=== PATIENT | male | born 2005 | race Caucasian/White ===

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

== ENCOUNTER 2023-11-20 18:54 | Emergency (ER) | payer OTHER, SELFPAY ==
[2023-11-20 19:05] VITALS: BP 122/72; PULSE 78; RESP 20; TEMP 36.7; O2SAT 100
--- NOTE | 2023-11-20 19:12 | ED.SKABFB ---
HPI - Skin/Abscess/Foreign Bdy General Chief complaint: Skin/Abscess/Foreign Body Stated complaint: poss staff infection Time Seen by Provider: 11/20/23 19:13 Source: patient, RN notes reviewed and old records reviewed Mode of arrival: ambulatory Limitations: no limitations History of Present Illness HPI narrative: 18 year old male who presents to [facility] care with complaints of 2 week duration of red lesions to lower abdomen and upper pubis and groin area in various stages of healing. Patient reports that areas are itchy and he has been scratching with some scabbed, some red and some with pustules noted.Patient reports that he shaved his lower abdomen and upper pubis area and then developed the rash. Patient denies any fevers or any chills. MD complaint: rash Onset (ago): week(s) (2 weeks) Severity scale (1-10): 6 Quality: burning and pruritic Treatments prior to arrival: none Related Data Allergies Allergy/AdvReac Type Severity Reaction Status Date / Time No Known Allergies Allergy Verified 11/20/23 19:12 Review of Systems Review of Systems: CONSTITUTIONAL: Denies fever, chills, or sweats. CARDIOVASCULAR: Denies chest pain, palpitations, or edema. RESPIRATORY: Denies cough or dyspnea. SKIN: Reports lesions to lower abdomen upper pubis and groin area in various stages of healing for the past 2 weeks after shaving areas MUSCULOSKELETAL: Denies joint pain or myalgia. NEUROLOGIC: Denies headache, numbness, or weakness. All systems reviewed & are unremarkable except as noted in HPI and below PMFSH Past Medical History Medical History (Updated 11/20/23 @ 19:45 by Elena Vazquez NP) ADHD (attention deficit hyperactivity disorder) Bronchitis History of staph infection Strep throat Social History Social History (Updated 11/20/23 @ 19:42 by Elena Vazquez NP) Smoking status: Current every day smoker Tobacco type: e-cigarettes/vaping Alcohol intake: current Alcohol use details: rare Substance use: current Substance use type: marijuana Living arrangements: with family Gender identity (if verbalized by the patient): Male Comments At time of signature, agree with nursing past medical, surgical, social and family history. There is no relevant family history pertinent to the presenting complaint Exam Narrative: GENERAL: Well-appearing, well-nourished, and in no acute distress. HEAD: Normocephalic, atraumatic. EYES: PERRLA, conjunctivae clear, and EOMI. ENT: Mucous membranes moist. Oropharynx without edema, erythema or lesions. NECK: Supple. No lymphadenopathy CHEST: Clear to auscultation. No respiratory distress.SAO2 100% on room air HEART: Regular rate and rhythm. SKIN: Warm, dry.? Patches of raised erythemic lesions with some pustules on lower abdomen and upper pubis and groin area NEURO:? Alert and oriented x3. PSYCH: Normal mood and affect Course Course Emergency Course: Patient is aware of diagnosis, understands and agrees to treatment plan.? Anticipatory guidance given.? Patient agrees to follow-up as directed and is aware of reasons to seek care at the emergency department. Portions of this record may have been created with voice recognition software Level of Care: Express Care Visit Vital Signs Vital signs: Reviewed MDM - Skin/Abscess/Foreign Bdy MDM Narrative Medical decision making narrative: Does not appear at this time to be erythema multiforme, bullous, SJS, TEN; no evidence at this time to suggest RMSF, endocarditis or Lyme disease; patient looks well, nontoxic and is tolerating oral intake; no neurologic signs or symptoms; no headache, photophobia or neck pain; afebrile; appropriate for initial outpatient treatment; discussed the importance of follow-up, patient agrees; question, viral exanthema, contact dermatitis, allergic dermatitis, eczema, urticaria. No soft palate or uvula edema, no tongue, lip edema or other mucosal involvement, no respiratory
== END 2023-11-20 19:28 | disposition home or self-care (01) ==
PROVIDERS: Emergency Provider Registered Nurse
DX: L73.9 Follicular disorder, unspecified (principal); F17.290 Nicotine dependence, other tobacco product, uncomplicated
CPT/HCPCS: 99213; G0463

== ENCOUNTER 2024-07-01 13:52 | Emergency (ER) | payer OTHER, SELFPAY ==
[2024-07-01 13:55] VITALS: BP 129/74; PULSE 86; RESP 18; TEMP 36.4; O2SAT 100
--- NOTE | 2024-07-01 14:04 | ED.EXTPRO ---
HPI - Extremity Problem General Chief complaint: Extremity Problem,Nontraumatic Stated complaint: Right shoulder pain Time Seen by Provider: 07/01/24 14:04 Source: patient Mode of arrival: ambulatory Limitations: no limitations History of Present Illness HPI Narrative: 19-year-old male presented for complaint of right shoulder pain for 4 days. He states he thinks he slept on it wrong. pain is to the anterior shoulder, is described as sharp. Denies known injury. Endorses decreased range of motion due to pain when trying to reach arm behind the back, otherwise has full range of motion without pain. He states he does lift at work, which caused more pain yesterday. Has taken ibuprofen. Denies radiating pain, numbness, tingling, weakness. Related Data Allergies Allergy/AdvReac Type Severity Reaction Status Date / Time No Known Allergies Allergy Verified 07/01/24 13:59 Review of Systems Review of Systems: CONSTITUTIONAL: Denies body aches, fever, chills EYES: Denies visual changes ENT: Denies rhinorrhea, congestion CARDIOVASCULAR: Denies chest pain, palpitations, or edema. RESPIRATORY: Denies cough or dyspnea. GASTROINTESTINAL: Denies abdominal pain, nausea, vomiting, or diarrhea. SKIN: Denies rash, itching, or wounds. MUSCULOSKELETAL: reports right shoulder pain NEUROLOGIC: Denies headache, numbness, tingling, or weakness. PSYCH: Denies depression or anxiety. All systems reviewed & are unremarkable except as noted in HPI and below PMFSH Past Medical History Medical History History of staph infection Bronchitis Strep throat ADHD (attention deficit hyperactivity disorder) Social History Social History Smoking status: Current every day smoker Tobacco type: e-cigarettes/vaping Alcohol intake: current Alcohol use details: rare Substance use: current Substance use type: marijuana Living arrangements: with family Gender identity (if verbalized by the patient): Male Comments At time of signature, I have reviewed and agree with nursing past medical, surgical, social and family history unless otherwise noted. Please see nursing chart for further information. There is no relevant family history pertinent to the presenting complaint Exam Narrative: GENERAL: Well-appearing in no acute distress. HEAD: Normocephalic, atraumatic. EYES: PERRLA, conjunctivae clear NECK: Supple. CHEST: Speaks in full sentences. No respiratory distress. HEART: Regular rate and rhythm. Normal and equal peripheral pulses. EXTREMITIES: right upper extremity has normal strength and sensation, normal range of motion with anterior and lateral movement of the shoulder, but endorses pain with posterior movement. no edema or ecchymosis, No point tenderness. No open wounds, skin tenting, or obvious deformity; alignment normal, pulse palpable and equal bilaterally, skin warm, dry, pink. Capillary refill less than 3 seconds. SKIN: Warm, dry, no rash. NEURO: Alert and oriented x3. PSYCH: Normal mood and affect Course Course Emergency Course: Patient is aware of diagnosis, understands and agrees to treatment plan. Anticipatory guidance given. Patient agrees to follow-up as directed and is aware of reasons to seek care at the emergency department. Portions of this record may have been created with voice recognition software Level of Care: Express Care Visit Vital Signs Vital signs: Vital Signs Temperature 97.6 F 07/01/24 13:55 Pulse Rate 86 07/01/24 13:55 Respiratory Rate 18 07/01/24 13:55 Blood Pressure 129/74 07/01/24 13:55 Pulse Oximetry 100 07/01/24 13:55 Oxygen Delivery Room Air 07/01/24 13:55 Temperature 97.6 F 07/01/24 13:55 Pulse Rate 86 07/01/24 13:55 Respiratory Rate 18 07/01/24 13:55 Blood Pressure 129/74 07/01/24 13:55 Pulse Oximetry 100 07/01/24 13:55 Oxygen Delivery Room Air 07/01/24 13:55 Reviewed MDM - Extremity (Nontraumatic) MDM Narrative Medical decision making narrative: Discussed physical exam findings , reviewed prescriptions. Advised supportive measures and signs/symptoms to go to the ER. Pt is appropriate for outpt treatment and f/u. Differential Diagnosis Differential diagnosis: Likely other (Shoulder dislocation, clavicle fracture, humerus fracture, scapular fracture, acromioclavicular joint injury, rotator cuff tear, bicep tendon rupture, tricep tendon rupture) Discharge Plan Discharge Clinical Impression: Acute pain of right shoulder Patient Disposition: Home, Self-Care Condition: Stable Instructions: Shoulder Pain (ED) Additional Instructions: Rest. Avoid pushing, pulling, lifting or anything that worsens the symptoms No lifting over 10 lbs until symptoms are fully resolved. Tylenol 1000mg every 8 hours as needed You can alternate with ibuprofen 800mg Alternate ice/heat to the site. Lidocaine or salon pas pain patch or use pain cream like icy/hot or biofreeze. Follow up with your primary care provider as needed in 1 week Go to the ER for worsening symptoms or concerns Patient Language: Syriac Prescriptions: New cyclobenzaprine 10 mg tablet 10 mg PO TID PRN (Reason: muscle spasm) Qty: 12 0RF prednisone 50 mg tablet 50 mg PO DAILY Qty: 5 0RF Follow-up/Referrals: PHYSICIAN,LIME [employer]IL[employer] WORKER HELPER [Primary Care Provider] - Stand Alone Forms: Work/School Release IP Time of Disposition: 14:13
--- OUTSIDE RECORDS SUMMARY | 2024-07-01 14:04 | XMS_ITS | Clinical Summary ---
Author Organization [facility] Address [address] [place] [address] Phone Care Team Providers Care Claim Trainee Name Role Phone Unavailable Primary Care Provider Unavailabl e Immunizations Immunization Administration Dates Next Due DTAP VACCINE 04/14/2004, 4,2003,2002 HEP B/HIB Combined Vaccine 2003,2003 Hepatitis B Vaccine, Pediatric/adolescent 2003 Hib Vaccine,unspecified Formulation 01/13/2004,1 07/09/2002 Inactivated Polio Vaccine 2003,2003, 2003 MMR Vaccine 01/13/2004 Pneumococcal Vaccine Peds - 7 Valent ,2003,2003,2002 Varicella Vaccine Live 01/13/2004 Social History Tobacco Use Types Packs/Day Years Used Date Smoking Tobacco: Never Assessed Sex and Gender Information Value Date Recorded Sex Assigned at Not on file Legal Sex Male 9:07 PM CDT Gender Identity Not on file Sexual Orientation Not on file Plan of Treatment Not on file
== END 2024-07-01 14:28 | disposition home or self-care (01) ==
PROVIDERS: Emergency Provider Nurse Practitioner Family
DX: M25.511 Pain in right shoulder (principal); F17.290 Nicotine dependence, other tobacco product, uncomplicated
CPT/HCPCS: 99213; G0463

== ENCOUNTER 2025-01-09 14:16 | Emergency (ER) | payer OTHER, SELFPAY ==
--- OUTSIDE RECORDS SUMMARY | 2025-01-09 14:18 | XMS_ITS | Clinical Summary ---
Author Organization [facility] Address [address] [place] [address] Phone Care Team Providers Care Manager Welding Name Role Phone Unavailable Primary Care Provider [...]
[2025-01-09 14:21] VITALS: BP 119/72; PULSE 70; RESP 16; TEMP 36.4; O2SAT 100
--- NOTE | 2025-01-09 14:28 | ED_ITS ---
HPI - Extremity Injury (Lower) General Chief Complaint: Extremity Injury, Lower Stated Complaint: Left Big Toe/ Skin Sore Time Seen by Provider: 01/09/25 14:28 Source: patient Mode of arrival: ambulatory Limitations: no limitations History of Present Illness HPI Narrative: 20 yo M presents with pain to L great toe. Cut his own ingrown toenail and had pain yesterday. Was not able to go to work. Needs work excuse. Soaked in epsom salt and applied hydrogen peroxide and feels better today. All systems reviewed and negative except as noted above. Related Data Allergies Allergy/AdvReac Type Severity Reaction Status Date / Time No Known Allergies Allergy Verified 01/09/25 14:29 [facility] Past Medical History Medical History History of staph infection Bronchitis Strep throat ADHD (attention deficit hyperactivity disorder) Social History Social History Smoking status: Current every day smoker Tobacco type: e-cigarettes/vaping Alcohol intake: current Alcohol use details: rare Substance use: current Substance use type: marijuana Living arrangements: with family Gender identity (if verbalized by the patient): Male Comments At time of signature, agree with nursing past medical, surgical, social and family history. There is no relevant family history pertinent to the presenting complaint. Exam Narrative: GENERAL: This is a well-nourished, well-developed patient, in no apparent distress. HEAD: normocephalic, atraumatic. EYES: PERRL. Sclera clear/white. Vision is grossly intact. EARS: External ears normal NOSE: External nose normal NECK: Neck supple, non-tender without lymphadenopathy, masses or thyromegaly. CARDIOVASCULAR: Regular rate and rhythm without murmurs, gallops, or rubs. RESPIRATORY: Clear to auscultation. Breath sounds equal bilaterally. No wheezes, rales, or rhonchi. SKIN: warm, Dry, intact with no suspicious lesions or rash, good texture and turgor. no erythema or swelling. tender on palpation to medial aspect L great toenail. NEURO: awake, alert, and oriented to person, place and time. There were no obvious focal neurologic abnormalities. EXTREMITIES: No joint tenderness, effusion, or edema noted. Course Course Level of Care: Express Care Visit Vital Signs Vital signs: Vital Signs Temperature 36.4 C 01/09/25 14:21 Pulse Rate 70 01/09/25 14:21 Respiratory Rate 16 01/09/25 14:21 Blood Pressure 119/72 01/09/25 14:21 Pulse Oximetry 100 01/09/25 14:21 Oxygen Delivery Room Air 01/09/25 14:21 Temperature 36.4 C 01/09/25 14:21 Pulse Rate 70 01/09/25 14:21 Respiratory Rate 16 01/09/25 14:21 Blood Pressure 119/72 01/09/25 14:21 Pulse Oximetry 100 01/09/25 14:21 Oxygen Delivery Room Air 01/09/25 14:21 reviewed MDM - Extremity Injury (Lower) MDM Narrative Medical decision making narrative: pt given mupirocin ointment to start if he has signs of infection. pt well appearing. given work excuse for yesterday. Discharge Plan Discharge Clinical Impression: Pain around toenail, left foot Patient Disposition: Home Condition: Stable Instructions: Antibiotic Form, Ingrown Nail (ED) Additional Instructions: If you have worsening of symptoms such as redness, swelling,drainage start prescribed antibiotic ointmment. Patient Language: Italian Prescriptions: New mupirocin [Centany] 2 % ointment 1 applic topical BID 7 Days Qty: 15 0RF Follow-up/Referrals: PHYSICIAN,OPERATIONS INTELLIGENCE SUPERINTENDENT [Primary Care Provider] - Stand Alone Forms: Work/School Release IP Time of Disposition: 14:34
== END 2025-01-09 14:47 | disposition home or self-care (01) ==
PROVIDERS: Emergency Provider Nurse Practitioner Family
DX: M79.675 Pain in left toe(s) (principal); F17.290 Nicotine dependence, other tobacco product, uncomplicated; F12.90 Cannabis use, unspecified, uncomplicated
CPT/HCPCS: 99213; G0463

== ENCOUNTER 2025-02-10 10:43 | Emergency (ER) | payer OTHER, SELFPAY ==
--- NOTE | ~2025-02-10 | XR_ITS ---
X-rays right second finger Indication: Injury Comparison: None Technique: 3 views right second finger Findings/Impression: 1. No fracture or other acute bony abnormality noted. 2. No radiopaque foreign body. Reviewed, dictated and finalized at location R.
[2025-02-10 10:45] VITALS: BP 129/91; PULSE 81; RESP 20; TEMP 36.7; O2SAT 100
--- NOTE | 2025-02-10 11:06 | ED_ITS ---
HPI - Extremity Injury (Upper) General Chief Complaint: Extremity Injury, Upper Stated Complaint: right hand smashed finger Time Seen by Provider: 02/10/25 10:58 Source: patient, RN notes reviewed and old records reviewed Mode of arrival: ambulatory Limitations: no limitations History of Present Illness HPI narrative: 20 year old male presents to [facility] care with complaints of smashing his right distal index finger when hanging a shelf last evening and shelf falling onto his right distal index finger, No open wounds noted to finger some redness with swelling and some blood noted under upper nail. Patient states that he tried to put a hole in his nail but was unable to get any blood out. Patient reports that finger tip is throbbing and has taken some Aspirin and has used ice to his right index finger, full mobility of finger noted. MD complaint: injury to: right (distal index finger) Onset (ago): day(s) (yesterday evening at 10pm) Other injuries: none Severity scale (1-10): 5 Treatments prior to arrival: cold therapy and other (aspirin, tried to put hole in nailbed unsuccessful) Related Data Allergies Allergy/AdvReac Type Severity Reaction Status Date / Time No Known Allergies Allergy Verified 01/09/25 14:29 Review of Systems Review of Systems: CONSTITUTIONAL: Denies fever, chills, or sweats. EYES: Denies visual changes, redness, or discharge. ENT: Denies rhinorrhea, congestion, sore throat, or otalgia. CARDIOVASCULAR: Denies chest pain, palpitations, or edema. RESPIRATORY: Denies cough or dyspnea. GASTROINTESTINAL: Denies abdominal pain, nausea, vomiting, or diarrhea. GENITOURINARY: Denies dysuria or hematuria. SKIN: Denies rash or itching. MUSCULOSKELETAL: Denies back pain, joint pain, or myalgia.reports pain to the distal right index finger with small amount of blood under upper nail bed with some redness and swelling distal index finger NEUROLOGIC: Denies headache, numbness, or weakness. PSYCHIATRIC: Denies anxiety or depression. All systems reviewed & are unremarkable except as noted in HPI and below PMFSH Past Medical History Medical History History of staph infection Bronchitis Strep throat ADHD (attention deficit hyperactivity disorder) Social History Social History Smoking status: Current every day smoker Tobacco type: e-cigarettes/vaping Alcohol intake: current Alcohol use details: rare Substance use: current Substance use type: marijuana Living arrangements: with family Gender identity (if verbalized by the patient): Male Comments At time of signature, agree with nursing past medical, surgical, social and family history. There is no relevant family history pertinent to the presenting complaint Exam Narrative: GENERAL: Well-appearing, well-nourished, and in no acute distress. HEAD: Normocephalic, atraumatic. EYES: PERRLA and EOMI. ENT: Nares clear, no rhinorrhea or epistaxis. Mucous membranes moist. NECK: Supple. CHEST: Clear to auscultation. No respiratory distress. HEART: Regular rate and rhythm. No murmur heard. Normal peripheral pulses. ABDOMEN: Soft, nontender, nondistended, normal active bowel sounds. EXTREMITIES: Normal range of motion. No edema.Exception noted to pain with mild swelling and redness to distal aspect of right index finger with some blood noted under proximal nail bed, strong right radial pulse, full mobility of right index finger. SKIN: Warm, dry, no rash. NEURO: No focal deficits. Alert and oriented x3. Course Course Emergency Course: Patient is aware of diagnosis, understands and agrees to treatment plan.? Anticipatory guidance given.? Patient agrees to follow-up as directed and is aware of reasons to seek care at the emergency department. Portions of this record may have been created with voice recognition software Level of Care: Express Care Visit Vital Signs Vital signs: Vital Signs Temperature 36.7 C 02/10/25 10:45 Pulse Rate 81 02/10/25 10:45 Respiratory Rate 02/10/25 10:45 Blood Pressure 129/91 H 02/10/25 10:45 Pulse Oximetry 100 02/10/25 10:45 Oxygen Delivery Room Air 02/10/25 10:45 Temperature 36.7 C 02/10/25 10:45 Pulse Rate 81 02/10/25 10:45 Respiratory Rate 02/10/25 10:45 Blood Pressure 129/91 H 02/10/25 10:45 Pulse Oximetry 100 02/10/25 10:45 Oxygen Delivery Room Air 02/10/25 10:45 Reviewed Procedures Other Procedure Procedure 1: Other Procedure: 1130 Using a cautery pin a small hole was placed in proximal middle nail bed of the right index finger with small amount of blood emitted from under the nail, Nail bed cleansed with alcohol and band-aide applied. Patient tolerated well. MDM - Extremity Injury (Upper) Differential Diagnosis Differential diagnosis: Likely other (finger fracture, subungual hematoma, pain to distal right finger, contusion to right index finger) Medical Records Attestation: I reviewed the patient's medical records. Imaging Data Attestation: I personally reviewed and interpreted this imaging study as follows: My impression: no fracture noted Radiologist's impression: [facility] [address] [place] [address] XRay Report Signed Patient: Bassam Pruitt : 2005 MR#: [id number] Age: 20 Acct:[id number] Loc: [facility] ADM Date: 02/10/25Attending Dr: Ordering Physician: Elena Vazquez APRN Date of Service: 02/10/25 Procedure(s): XR finger 2nd RT min 2V Accession Number(s): [id number] cc: EYE CLINIC MANAGER PHYSICIAN; Elena Vazquez APRN~ X-rays right second finger Indication: Injury Comparison: None Technique: 3 views right second finger Findings/Impression: 1. No fracture or other acute bony abnormality noted. 2. No radiopaque foreign body. Reviewed, dictated and finalized at location R. Please be advised this is a medical document. It is intended for [id number] communication. It is written in medical language and may contain unfamiliar abbreviations or verbiage. Medical documents are intended to carry relevant information, facts as evident, and the clinical opinion of the practitioner at the time of the encounter. This report may have been done utilizing a voice recognition system. Attempts have been made to correct errors. However, there may be uncorrected grammatical, spelling, and recognition errors present. The file time of this note does not necessarily represent the time of service. Dictated By: Elie Krishnan MD 02/10/25 1136 Signed By: <Electronically signed by Elie Krishnan MD in OV> Critical Care Time Critical Care Time Critical Care Time: No Discharge Plan Discharge Clinical Impression: Subungual hematoma of finger of right hand Qualifiers: Encounter type: initial encounter Qualified Code(s): S60.10XA - Contusion of unspecified finger with damage to nail, initial encounter Contusion of right index finger Qualifiers: Encounter type: initial encounter Damage to nail status: with damage Qualified Code(s): S60.121A - Contusion of right index finger with damage to nail, initial encounter Patient Disposition: Home Condition: Stable Instructions: Subungual Hematoma (ED) Additional Instructions: Tylenol for lesser pain Ibuprofen regularly for the next 2-3 days for the inflammation Follow-up with PCP if further problems or concerns Ice to the area 20-30 minutes 4-6 times a day Elevate above heart monitor for any increase swelling or redness of finger go to ED if any further concerns If your symptoms persist, change or worsen significantly before you can contact your personal physician then please, without delay, go to the emergency department for further evaluation. Follow-up with PCP in 7-10 days or sooner if needed Follow up with PCP soon in regards to your blood pressure which is elevated above threshold for referral. Blood pressure above 120/80 may indicate pre- hypertension.129/91 Patient Language: French Prescriptions: No Action mupirocin [Centany] 2 % ointment 1 applic topical BID 7 Days Qty: 15 0RF Follow-up/Referrals: PHYSICIAN,EYE CLINIC MANAGER [Primary Care Provider, Internal Medicine] Time of Disposition: 11:53 Quality Sandhya Coma Scale Eyes: Open Verbal: Oriented and Alert Motor: Follows Commands Sandhya Coma Total Score: 15
--- OUTSIDE RECORDS SUMMARY | 2025-02-10 12:33 | XMS_ITS | Clinical Summary ---
Author Organization [facility] Address [address] [place] [address] Phone Care Team Providers Care Pet Store Merchandiser Name Role Phone Unavailable Primary Care Provider [...]
== END 2025-02-10 11:55 | disposition home or self-care (01) ==
PROVIDERS: Emergency Provider Registered Nurse
DX: S60.121A Contusion of right index finger with damage to nail, initial encounter (principal); W20.8XXA Other cause of strike by thrown, projected or falling object, initial encounter; F17.290 Nicotine dependence, other tobacco product, uncomplicated
CPT/HCPCS: 11740; 73140; 99213; G0463

== ENCOUNTER 2025-04-24 08:39 | Emergency (ER) | payer OTHER, SELFPAY ==
--- OUTSIDE RECORDS SUMMARY | 2025-04-24 08:42 | XMS_ITS | Clinical Summary ---
Author Organization [facility] Address [address] [place] [address] Phone Care Team Providers Care Family Dinner Service Specialist Name Role Phone Unavailable Primary Care Provider [...]
[2025-04-24 08:50] VITALS: BP 140/76; PULSE 98; RESP 16; TEMP 36.8; O2SAT 99
--- NOTE | 2025-04-24 09:01 | ED_ITS ---
HPI - Ear Problem General Chief complaint: Ear Stated complaint: ear pain Time Seen by Provider: 04/24/25 09:02 Source: patient Mode of arrival: ambulatory Limitations: no limitations History of Present Illness HPI Narrative: 20-year-old male presents with complaint of left ear pain for 5 days. Afebrile. No changes to hearing. All systems reviewed and negative except as noted above. Related Data Home Medications ?Medication ?Instructions ?Recorded ?Confirmed ?Last Taken ?Type lamotrigine 25 mg tablet mg 04/24/25 Unknown History Allergies Allergy/AdvReac Type Severity Reaction Status Date / Time No Known Allergies Allergy Verified 04/24/25 08:58 [facility] Past Medical History Medical History History of staph infection Bronchitis Strep throat ADHD (attention deficit hyperactivity disorder) Social History Social History Smoking status: Current every day smoker Tobacco type: e-cigarettes/vaping Alcohol intake: current Alcohol use details: rare Substance use: current Substance use type: marijuana Living arrangements: with family Gender identity (if verbalized by the patient): Male Comments At time of signature, agree with nursing past medical, surgical, social and family history. There is no relevant family history pertinent to the presenting complaint. Exam Narrative: GENERAL: This is a well-nourished, well-developed patient, in no apparent distress. HEAD: normocephalic, atraumatic. EYES: PERRL. Sclera clear/white. Vision is grossly intact. EARS: External ears normal, Mild swelling to left ear canal with erythema and tenderness. Normal TM. No TM perforation. NOSE: External nose normal NECK: Neck supple, non-tender without lymphadenopathy, masses or thyromegaly. CARDIOVASCULAR: Regular rate and rhythm without murmurs, gallops, or rubs. RESPIRATORY: Clear to auscultation. Breath sounds equal bilaterally. No wheezes, rales, or rhonchi. SKIN: warm, Dry, intact with no suspicious lesions or rash, good texture and turgor. NEURO: awake, alert, and oriented to person, place and time. There were no obvious focal neurologic abnormalities. EXTREMITIES: No joint tenderness, effusion, or edema noted. Course Course Level of Care: Express Care Visit Vital Signs Vital signs: Vital Signs Temperature 36.8 C 04/24/25 08:50 Pulse Rate 98 04/24/25 08:50 Respiratory Rate 16 04/24/25 08:50 Blood Pressure 140/76 04/24/25 08:50 Pulse Oximetry 99 04/24/25 08:50 Oxygen Delivery Room Air 04/24/25 08:50 Temperature 36.8 C 04/24/25 08:50 Pulse Rate 98 04/24/25 08:50 Respiratory Rate 16 04/24/25 08:50 Blood Pressure 140/76 04/24/25 08:50 Pulse Oximetry 99 04/24/25 08:50 Oxygen Delivery Room Air 04/24/25 08:50 Reviewed Medical Decision Making MDM Narrative Medical decision making narrative: will treat left otitis externa with antibiotic ear drop Vital Signs Vital Signs: Vital Signs Temperature 36.8 C 04/24/25 08:50 Pulse Rate 98 04/24/25 08:50 Respiratory Rate 16 04/24/25 08:50 Blood Pressure 140/76 04/24/25 08:50 Pulse Oximetry 99 04/24/25 08:50 Oxygen Delivery Room Air 04/24/25 08:50 Temperature 36.8 C 04/24/25 08:50 Pulse Rate 98 04/24/25 08:50 Respiratory Rate 16 04/24/25 08:50 Blood Pressure 140/76 04/24/25 08:50 Pulse Oximetry 99 04/24/25 08:50 Oxygen Delivery Room Air 04/24/25 08:50 Discharge Plan Discharge Clinical Impression: Acute otitis externa of left ear Patient Disposition: Home Condition: Stable Instructions: Antibiotic Form, Swimmer's Ear (ED) Additional Instructions: Place antibiotic ear drops as prescribed. Take ibuprofen or Tylenol every 6-8 hours as needed for pain. Follow-up with your primary care physician if not improving. Patient Language: Macedonian Prescriptions: New monwjolo-yrfstkish-KD 3.5-10,000-1 mg/mL-unit/mL-% drops,suspension 3 drp LEFT EAR Q8H 7 Days Qty: 10 0RF No Action lamotrigine 25 mg tablet Follow-up/Referrals: PHYSICIAN,INDUSTRIAL TRUCK MECHANIC [Primary Care Provider, Internal Medicine] Stand Alone Forms: Work/School Release IP Time of Disposition: 09:07
== END 2025-04-24 09:11 | disposition home or self-care (01) ==
PROVIDERS: Emergency Provider Nurse Practitioner Family
DX: H60.92 Unspecified otitis externa, left ear (principal); F17.290 Nicotine dependence, other tobacco product, uncomplicated; F12.90 Cannabis use, unspecified, uncomplicated
CPT/HCPCS: 99213; G0463